=== PATIENT | female | born 1955 | race Caucasian/White ===

== ENCOUNTER → 2017-07-09 | Outpatient (CLI) | payer OTHER ==
[~2017-07-09] MED LIST: CALC0.2510 PO; CALC667C4 PO; CHOL100010 PO; FURO-85 PO; LABE300T PO; LBT/100 PO; METH-307 PO; TMFUDL30 PO; TRAM-10 PO
--- NOTE | 2017-07-09 12:23 | DIAGNOSTIC IMAGING REPORT ---
CHEST 2 VIEWS ROUTINE HISTORY: 62 years-old Female COPD/FEVER acute fever. COMPARISON: Chest radiograph 12/12/2015 TECHNIQUE: PA and lateral views of the chest FINDINGS: Cardiac silhouette is moderately enlarged. There is improved aeration of the left lung base from comparison. No pneumothorax, pleural effusion, focal airspace consolidation or overt pulmonary edema. The bones are grossly intact. IMPRESSION: No acute cardiopulmonary process. The above report was generated using voice recognition software. It may contain grammatical, syntax or spelling errors. Electronically signed by: Genaro Olvera M.D. 07/09/2017 12:21 PM Dictated Date/Time: 07/09/2017 12:21 PM
== END | disposition home or self-care (01) ==
LOC: C.RADPV 12:00
PROVIDERS: ATTEND Family Medicine
DX: J44.1 Chronic obstructive pulmonary disease with (acute) exacerbation (principal); R50.9 Fever, unspecified

== ENCOUNTER → 2017-08-11 | Outpatient (CLI) | payer OTHER ==
--- NOTE | 2017-08-11 10:27 | DIAGNOSTIC IMAGING REPORT ---
TWO VIEW CHEST CLINICAL HISTORY: Pneumonia. FINDINGS: PA and lateral chest radiographs are compared to study dated 07/09/2017. The heart is markedly enlarged and there is atherosclerotic calcification of the thoracic aorta. The pulmonary vasculature is noncongested. There is left basilar airspace consolidation with a small left pleural effusion. The right lung is grossly clear. There is no pneumothorax. The skeletal structures are osteopenic. The bony thorax appears intact. IMPRESSION: 1. Cardiomegaly without radiographic evidence of congestive failure. 2. There is left basilar consolidation and a small left pleural effusion. The appearance is typical for pneumonia. Radiographic follow-up to resolution is recommended. Electronically signed by: Rell Matson M.D. 08/11/2017 10:26 AM Dictated Date/Time: 08/11/2017 10:25 AM
== END | disposition home or self-care (01) ==
LOC: C.RADPV 10:13
PROVIDERS: ATTEND Internal Medicine Nephrology
DX: J18.9 Pneumonia, unspecified organism (principal)